=== PATIENT | female | born 1995 | race Caucasian/White ===

== ENCOUNTER 2020-01-19 13:35 | Emergency (ER) | payer SELFPAY ==
[~2020-01-19] VITALS: Ht 182.9 cm; Wt 58.0 kg
[2020-01-19] MEDS ORDERED: KETOROLAC 30 MG/1 ML ONE (14:25)
[2020-01-19] MEDS ORDERED: METOCLOPRAMIDE 5 MG/ML, 2ML ONE (14:25)
[2020-01-19] MEDS ORDERED: DIPHENHYDRAMINE 50 MG/ML, 1ML ONE (14:25)
[2020-01-19 14:29] VITALS: BP 114/83
[2020-01-19] MEDS ORDERED: DIPHENHYDRAMINE 50 MG/ML, 1ML IVPush ONE (14:30)
[2020-01-19] MEDS ORDERED: ACET650S21 PO (14:44)
[2020-01-19] MEDS ORDERED: IBUP200C8 PO (14:44)
--- NOTE | 2020-01-19 14:51 | NUR ---
IV STARTED. ORDERED MEDS AND FLUIDS ADMINISTERED. LABS DRAWN OFF IV START. PT REPOSITIONED FOR COMFORT. LIGHTS DIMMED. FRIEND AT BEDSIDE. PT AWAITING C SCAN.
[2020-01-19] MEDS ORDERED: KETOROLAC 30 MG/1 ML IVPush ONE (15:00)
[2020-01-19] MEDS ORDERED: METOCLOPRAMIDE 5 MG/ML, 2ML IVPush ONE (15:00)
[2020-01-19] MEDS ORDERED: SODIUM CHLORIDE 0.9% 1,000ML IVBOLUS ONE (15:00)
--- NOTE | 2020-01-19 15:01 | NUR ---
PT GOING TO CT AT THIS TIME.
== END 2020-01-19 17:22 | disposition home or self-care (01) ==
LOC: ED 14:50
DX: G43.909 Migraine, unspecified, not intractable, without status migrainosus (principal); R41.82 Altered mental status, unspecified; R42 Dizziness and giddiness; R11.0 Nausea; Z90.89 Acquired absence of other organs
CPT/HCPCS: 70450; 96361; 96374; 96375; 99284; J1200; J1885; J2765; J7030

== ENCOUNTER 2020-02-14 08:49 | Emergency (ER) | payer OTHER ==
[~2020-02-14] VITALS: Ht 182.9 cm; Wt 56.0 kg
[~2020-02-14 08:49] MED LIST: ACET650S21 PO; IBUP200C8 PO
--- NOTE | 2020-02-14 09:24 | NUR ---
"I'VE BEEN PUKING FOR 2 DAYS" COUGH X 3 DAYS, "SUPER STUFFED UP, TOO" DECREASED APPETITE, DECREASED SENSE OF SMELL & TASTE. STARTED A SORE THROAT, TRANSITIONED TO MENTIONED SX. DENIES SORE THROAT CURRENTLY, FEVER. TRIED MULTIPLE OTC MEDS W/OUT RELIEF. STATES BOYFRIEND HAD RESP SX FIRST. BOYFRIEND IN ROOM. BOYFRIEND SCHEDULED FOR COVID TEST TOMORROW. PT DENIES EXPOSURE TO COVID. Addendum: 02/14/20 at 0929 by JLEMAK LMP: NEXPLANON IMPLANT. LAST BM: TODAY. LAST ORAL: YESTERDAY MORNING.
[2020-02-14] MEDS ORDERED: ONDA4TAB13 PO (09:29)
[2020-02-14] MEDS ORDERED: NAPR-685 PO (09:29)
[2020-02-14] MEDS ORDERED: NEXPLANON (09:31)
[2020-02-14 09:55] LABS: RAPID INFLUENZA A Negative (Negative); RAPID INFLUENZA B Negative (Negative)
[2020-02-14 10:48] VITALS: BP 130/85
== END 2020-02-14 11:06 | disposition home or self-care (01) ==
LOC: ED 10:16
DX: U07.1 COVID-19 (principal); B34.9 Viral infection, unspecified; R11.10 Vomiting, unspecified; G43.909 Migraine, unspecified, not intractable, without status migrainosus; F17.200 Nicotine dependence, unspecified, uncomplicated
CPT/HCPCS: 36415; 87400; 87635; 99283